=== PATIENT | male | born 1970 | race Hispanic/Latino ===

== ENCOUNTER 2017-09-15 18:07 | Emergency (ER) | payer SELFPAY ==
[2017-09-15] MEDS ORDERED: LIDOCAINE 2%-EPI 1:200,000 20 ML VIAL IJ ONE (18:33)
== END 2017-09-15 19:20 | disposition home or self-care (01) ==
LOC: EDH 18:07
DX: L02.214 Cutaneous abscess of groin (principal); E11.9 Type 2 diabetes mellitus without complications; I10 Essential (primary) hypertension
CPT/HCPCS: 10060; 99283; J3490

== ENCOUNTER 2017-11-26 11:07 | Emergency (ER) | payer SELFPAY ==
[2017-11-26] MEDS ORDERED: LABETALOL HCL 5 MG/ML 20ML VIAL IV ONE ×2 (11:35→14:50)
[2017-11-26 11:46] LABS: EOSINOPHILS % (AUTO) 3.6 % (0.0-8.0); HEMATOCRIT 44.9 % (42-54); LYMPHOCYTES % (AUTO) 16.8 % (21.0-51.0); MEAN CORPUSCULAR HEMOGLOBIN 29.4 pg (27.0-33.0); MEAN CORPUSCULAR HGB CONC 35.2 g/dL (32.0-36.0); MEAN CORPUSCULAR VOLUME 83.7 fL (79-99); MONOCYTES % (AUTO) 5.7 % (3.0-13.0); NEUTROPHILS % (AUTO) 72.9 % (40.0-77.0); PLATELET COUNT (AUTO) 301 K/uL (130-400); RED BLOOD CELL COUNT(AUTO) 5.37 MIL/uL (4.50-6.20); RED CELL DISTRIBUTION WIDTH 13.2 % (11.0-15.5); WHITE BLOOD COUNT (AUTO) 9.5 K/uL (4.8-10.8)
[2017-11-26] MEDS ORDERED: ACETAMINOPHEN 325 MG TAB ONE (11:46)
[2017-11-26 12:05] LABS: CREATININE 1.8 mg/dL (0.5-1.5); POTASSIUM 3.7 mmol/L (3.5-5.1)
[2017-11-26 12:21] LABS: CREATINE KINASE MB 4.6 ng/mL (0.5-3.6)
[2017-11-26 13:42] LABS: BILIRUBIN,URINE Negative (NEGATIVE); COLOR,URINE Yellow (YELLOW); GLUCOSE, URINE (UA) 500 mg/dL (NEGATIVE); KETONES,URINE Negative (NEGATIVE); LEUKOCYTE ESTERASE ,URINE Negative (NEGATIVE); NITRATE,URINE Negative (NEGATIVE); OCCULT BLOOD,URINE Small (NEGATIVE); PROTEIN,URINE 300 (NEGATIVE); UROBILINOGEN,URINE 0.2 mg/dL (0.2-1.0)
[2017-11-26 13:51] LABS: APPEARANCE,URINE CLEAR (CLEAR)
[2017-11-26 14:00] LABS: AMPHET/METH SCREEN,URINE NEGATIVE (NEGATIVE); BARBITURATE SCREEN, URINE NEGATIVE (NEGATIVE); BENZODIAZEPINES SCREEN,URINE NEGATIVE (NEGATIVE); CANNABINOID SCREEN,URINE NEGATIVE (NEGATIVE); COCAINE SCREEN,URINE NEGATIVE (NEGATIVE); OPIATE SCREEN,URINE NEGATIVE (NEGATIVE); PHENCYCLIDINE SCREEN,URINE NEGATIVE (NEGATIVE)
[2017-11-26 14:06] LABS: BACTERIA,URINE None Seen /HPF (None Seen); RBC,URINE 0-1 /HPF (0-1); SQUAMOUS EPITHELIAL CELL,UR 0-2 /HPF (0-2); WBC,URINE None Seen /HPF (0-1)
== END 2017-11-26 15:14 | disposition home or self-care (01) ==
LOC: EDH 11:07
DX: I10 Essential (primary) hypertension (principal); N28.9 Disorder of kidney and ureter, unspecified; R51 Headache; E11.9 Type 2 diabetes mellitus without complications; Z90.49 Acquired absence of other specified parts of digestive tract
CPT/HCPCS: 36415; 71045; 80048; 80305; 81001; 82550; 82553; 84484; 85025; 93005; 96374; 96376; 99285; J3490 ×2

== ENCOUNTER 2018-11-10 20:34 | Emergency (ER) | payer OTHER ==
[2018-11-10 21:08] LABS: BASOPHILS % (AUTO) 0.4 % (0.0-5.0); EOSINOPHILS % (AUTO) 4.4 % (0.0-8.0); HEMATOCRIT 43.6 % (42-54); LYMPHOCYTES % (AUTO) 5.3 % (21.0-51.0); MEAN CORPUSCULAR HEMOGLOBIN 29.7 pg (27.0-33.0); MEAN CORPUSCULAR HGB CONC 34.6 g/dL (32.0-36.0); MEAN CORPUSCULAR VOLUME 85.9 fL (79-99); MONOCYTES % (AUTO) 5.3 % (3.0-13.0); NEUTROPHILS % (AUTO) 84.6 % (40.0-77.0); PLATELET COUNT (AUTO) 246 K/uL (130-400); RED BLOOD CELL COUNT(AUTO) 5.08 MIL/uL (4.50-6.20); RED CELL DISTRIBUTION WIDTH 13.1 % (11.0-15.5); WHITE BLOOD COUNT (AUTO) 10.5 K/uL (4.8-10.8)
[2018-11-10] MEDS ORDERED: ONDANSETRON HCL 4 MG/2 ML VIAL ONE (21:16)
[2018-11-10 21:19] LABS: CREATININE 2.8 mg/dL (0.5-1.5); POTASSIUM 3.6 mmol/L (3.5-5.1)
[2018-11-10 21:23] LABS: ALBUMIN 3.2 g/dL (3.5-5.0); BILIRUBIN,TOTAL 0.4 mg/dL (0.2-1.0); TOTAL PROTEIN, SERUM 7.6 g/dL (6.0-8.3)
[2018-11-10 22:03] LABS: BAND NEUTROPHILS % (MANUAL) 8 % (0-2); EOSINOPHILS % (MANUAL) 3 % (1-6); LYMPHOCYTES % (MANUAL) 4 % (22-44); MAN.DIFF COMMENT-IMPRESSION MANUAL DIFFERENTIAL; MONOCYTES % (MANUAL) 5 % (2-9); PLATELET MORPHOLOGY COMMENT ADEQUATE; REACTIVE LYMPHOCYTES 4 % (0-0); SEGMENTED NEUTROPHILS % 76 % (40-70)
[2018-11-10] MEDS ORDERED: MORPHINE SULFATE 4 MG/1ML SYG ONE (22:09)
[2018-11-10 23:57] LABS: APPEARANCE,URINE CLEAR (CLEAR); BILIRUBIN,URINE NEGATIVE (NEGATIVE); COLOR,URINE YELLOW (YELLOW); GLUCOSE, URINE (UA) 250 mg/dL (NEGATIVE); KETONES,URINE NEGATIVE (NEGATIVE); LEUKOCYTE ESTERASE ,URINE NEGATIVE (NEGATIVE); NITRATE,URINE NEGATIVE (NEGATIVE); OCCULT BLOOD,URINE MODERATE (NEGATIVE); PH,URINE 5.5 (5.0-8.0); PROTEIN,URINE >=300 (NEGATIVE); UROBILINOGEN,URINE 0.2 mg/dL (0.2-1.0)
[2018-11-11 00:16] LABS: RBC,URINE 0-1 /HPF (0-1)
[2018-11-11 00:17] LABS: BACTERIA,URINE Few /HPF (None Seen)
== END 2018-11-11 00:31 | disposition home or self-care (01) ==
LOC: EDH 20:34
DX: K52.9 Noninfective gastroenteritis and colitis, unspecified (principal); E11.9 Type 2 diabetes mellitus without complications; I10 Essential (primary) hypertension; Z90.49 Acquired absence of other specified parts of digestive tract
CPT/HCPCS: 36415; 74176; 80053; 81001; 83690; 84484; 85025; 93005; 96361; 96374; 96375; 99284; J2270; J2405

== ENCOUNTER 2019-08-03 09:20 | Emergency (ER) | payer OTHER ==
[2019-08-03 09:45] LABS: BASOPHILS % (AUTO) 0.9 % (0.0-5.0); HEMATOCRIT 38.8 % (42-54); LYMPHOCYTES % (AUTO) 16.7 % (21.0-51.0); MEAN CORPUSCULAR HEMOGLOBIN 30.2 pg (27.0-33.0); MEAN CORPUSCULAR VOLUME 86.3 fL (79-99); MONOCYTES % (AUTO) 4.8 % (3.0-13.0); NEUTROPHILS % (AUTO) 73.6 % (40.0-77.0); PLATELET COUNT (AUTO) 220 K/uL (130-400); RED BLOOD CELL COUNT(AUTO) 4.49 MIL/uL (4.50-6.20); RED CELL DISTRIBUTION WIDTH 13.2 % (11.0-15.5); WHITE BLOOD COUNT (AUTO) 7.9 K/uL (4.8-10.8)
[2019-08-03] MEDS ORDERED: ASPIRIN 325 MG TABLET ONE (09:45)
[2019-08-03 09:49] LABS: CREATININE 2.8 mg/dL (0.5-1.5); POTASSIUM 3.1 mmol/L (3.5-5.1)
[2019-08-03 10:02] LABS: ALBUMIN 2.9 g/dL (3.5-5.0); BILIRUBIN,TOTAL 0.3 mg/dL (0.2-1.0); TOTAL PROTEIN, SERUM 6.9 g/dL (6.0-8.3)
[2019-08-03 10:12] LABS: B-TYPE NATRIURETIC PEPTIDE 32 pg/mL (0-100)
[2019-08-03 10:14] LABS: PARTIAL THROMBOPLASTIN TIME 25.3 SEC (26.3-35.5)
[2019-08-03 10:25] LABS: INR 0.89 (0.85-1.15); PROTHROMBIN TIME 9.4 SEC (9.6-11.6)
[2019-08-03] MEDS ORDERED: ACETAMINOPHEN EXTRA STRENGTH 500 MG TABLET ONE (11:39)
== END 2019-08-03 12:52 | disposition home or self-care (01) ==
LOC: EDH 09:20
DX: R07.89 Other chest pain (principal); E11.9 Type 2 diabetes mellitus without complications; I10 Essential (primary) hypertension; Z90.49 Acquired absence of other specified parts of digestive tract
CPT/HCPCS: 36415; 71045; 80053; 82550; 83880; 84484; 85025; 85610; 85730; 93005

== ENCOUNTER 2019-09-02 07:29 | Emergency (ER) | payer SELFPAY ==
[2019-09-02 08:04] LABS: BASOPHILS % (AUTO) 0.6 % (0.0-5.0); EOSINOPHILS % (AUTO) 4.1 % (0.0-8.0); HEMATOCRIT 40.9 % (42-54); LYMPHOCYTES % (AUTO) 16.3 % (21.0-51.0); MEAN CORPUSCULAR HEMOGLOBIN 29.2 pg (27.0-33.0); MEAN CORPUSCULAR VOLUME 85.9 fL (79-99); MONOCYTES % (AUTO) 6.2 % (3.0-13.0); NEUTROPHILS % (AUTO) 72.5 % (40.0-77.0); PLATELET COUNT (AUTO) 244 K/uL (130-400); RED BLOOD CELL COUNT(AUTO) 4.76 MIL/uL (4.50-6.20); RED CELL DISTRIBUTION WIDTH 12.7 % (11.0-15.5); WHITE BLOOD COUNT (AUTO) 6.3 K/uL (4.8-10.8)
[2019-09-02] MEDS ORDERED: HYDROCODONE/ACETAMINOPHEN 10/325 MG TAB ONE (08:06)
[2019-09-02] MEDS ORDERED: METOCLOPRAMIDE 10 MG/2 ML VIAL ONE ×2 (08:06→09:06)
[2019-09-02] MEDS ORDERED: SODIUM CHLORIDE 0.9% 1000ML 1,000 ML IV ONE (08:07)
[2019-09-02 08:24] LABS: CREATININE 3.1 mg/dL (0.5-1.5); POTASSIUM 3.7 mmol/L (3.5-5.1)
[2019-09-02 08:29] LABS: ALBUMIN 3.3 g/dL (3.5-5.0); BILIRUBIN,TOTAL 0.4 mg/dL (0.2-1.0)
== END 2019-09-02 10:24 | disposition home or self-care (01) ==
LOC: EDH 07:29
DX: R51 Headache (principal); E11.9 Type 2 diabetes mellitus without complications; I10 Essential (primary) hypertension; Z87.891 Personal history of nicotine dependence
CPT/HCPCS: 36415; 70450; 80053; 85025; 96374; 99285; J2765 ×2; J7030

== ENCOUNTER 2019-09-03 16:59 | Emergency (ER) | payer SELFPAY ==
[2019-09-03] MEDS ORDERED: LABETALOL 20 MG/4 ML DISP.SYRIN IV ONE ×2 (18:09→19:40)
[2019-09-03] MEDS ORDERED: PROCHLORPERAZINE EDISYLATE 10 MG/2 ML VIAL ONE (18:09)
[2019-09-03] MEDS ORDERED: ACETAMINOPHEN EXTRA STRENGTH 500 MG TABLET ONE (18:09)
[2019-09-03] MEDS ORDERED: SODIUM CHLORIDE 0.9% 1000ML 1,000 ML IV ONE (18:10)
[2019-09-03] MEDS ORDERED: CLONIDINE HCL 0.1 MG TABLET ONE (18:32)
[2019-09-03] MEDS ORDERED: MORPHINE SULFATE 4 MG/1ML SYG ONE (19:41)
[2019-09-03] MEDS ORDERED: BENZONATATE 100 MG CAPSULE PO ONE (22:11)
== END 2019-09-03 21:42 | disposition home or self-care (01) ==
LOC: EDH 16:59
DX: I16.9 Hypertensive crisis, unspecified (principal); I10 Essential (primary) hypertension; R51 Headache; E11.9 Type 2 diabetes mellitus without complications; Z79.899 Other long term (current) drug therapy; Z90.49 Acquired absence of other specified parts of digestive tract
CPT/HCPCS: 96374; 96375; 96376; 99284; J0780; J2270; J7030

== ENCOUNTER 2023-04-18 20:09 | Inpatient (IN) | payer MEDICARE ==
[~2023-04-18] VITALS: Ht 182.9 cm; Wt 130.6 kg
[2023-04-18] MEDS ORDERED: AZITHROMYCIN 500MG+NS 250ML IVPB SCH (21:30)
[2023-04-18] MEDS ORDERED: MORPHINE 2 MG SYG IVP ONE (21:30)
[2023-04-18] MEDS ORDERED: ALBUTEROL 0.083% 2.5 MG/3 ML INH IH ONE (21:30)
[2023-04-18] MEDS ORDERED: ASPIRIN 325MG TAB PO ONE (21:30)
[2023-04-18] MEDS ORDERED: NITROGLYCERIN 30 GM TUBE TD ONE (21:30)
[2023-04-18] MEDS ORDERED: CEFTRIAXONE 2GM VIAL IVPB ONE (21:30)
[2023-04-18] MEDS ORDERED: METOPROLOL TARTRATE 1 MG/ML 5ML VIAL IV ONE ×2 (21:37→22:00)
[2023-04-18 21:40] VITALS: PULSE 97; RESP 12
[2023-04-18 22:00] LABS: BASOPHILS # (AUTO) 0.05 K/uL (0.00-0.20); BASOPHILS % (AUTO) 0.4 % (0.0-5.0); EOSINOPHILS # (AUTO) 0.08 K/uL (0.00-0.70); EOSINOPHILS % (AUTO) 0.7 % (0.0-8.0); HEMATOCRIT 33.8 % (42-54); IMMATURE GRANULOCYTE ABSOLUTE 0.11 K/uL (0-1); LYMPHOCYTES # (AUTO) 0.6 K/uL (1.0-4.8); LYMPHOCYTES % (AUTO) 4.9 % (21.0-51.0); MEAN CORPUSCULAR HEMOGLOBIN 31.1 pg (27.0-33.0); MEAN CORPUSCULAR HGB CONC 32.5 g/dL (32.0-36.0); MEAN CORPUSCULAR VOLUME 95.5 fL (79-99); MONOCYTES # (AUTO) 1.5 K/uL (0.1-1.0); MONOCYTES % (AUTO) 12.6 % (3.0-13.0); NEUTROPHILS # (AUTO) 9.8 K/uL (1.8-7.7); NEUTROPHILS % (AUTO) 80.5 % (40.0-77.0); PLATELET COUNT (AUTO) 397 K/uL (130-400); RED BLOOD CELL COUNT(AUTO) 3.54 MIL/uL (4.50-6.20); WHITE BLOOD COUNT (AUTO) 12.2 K/uL (4.8-10.8)
[2023-04-18] MEDS ORDERED: GUAIFENESIN 600 MG TABLET.ER PO ONE (22:00)
[2023-04-18] MEDS ORDERED: ENOXAPARIN SODIUM 80 MG/0.8 ML SQ ONE (22:00)
[2023-04-18] MEDS ORDERED: HYDROCODONE/ACETAMINOPHEN 5/325 MG TAB ONE (22:17)
[2023-04-18 22:22] LABS: CREATININE 7.2 mg/dL (0.5-1.5); POTASSIUM 3.9 mmol/L (3.5-5.1)
[2023-04-18 22:24] LABS: INR 0.93 (0.85-1.15); PROTHROMBIN TIME 10.6 SEC (9.6-11.6)
[2023-04-18 22:26] LABS: PARTIAL THROMBOPLASTIN TIME 32.9 SEC (26.3-35.5)
[2023-04-18 22:28] LABS: ALBUMIN 2.7 g/dL (3.5-5.0); BILIRUBIN,TOTAL 0.4 mg/dL (0.2-1.0); TOTAL PROTEIN, SERUM 8.1 g/dL (6.0-8.3)
[2023-04-18] MEDS ORDERED: 0.9% NACL 250ML 250 ML IV SCH (22:30)
[2023-04-18] MEDS ORDERED: 0.9%NACL 1000ML 1,000 ML IV SCH (22:30)
[2023-04-18] MEDS ORDERED: NITROGLYCERIN 1GM OINT 1 INCH/1GM TD ONE (23:00)
[2023-04-18] MEDS ORDERED: NITROGLYCERIN 0.4 MG SL TAB SL PRN (23:00)
[2023-04-18] MEDS ORDERED: METOCLOPRAMIDE 10 MG/2 ML VIAL IVP ONE (23:00)
[2023-04-18] MEDS ORDERED: HYDROCODONE/ACETAMINOPHEN 5/325 MG TAB PO ONE (23:00)
[2023-04-18 23:53] LABS: ABG BASE EXCESS -0.2 mmol/L (-2.0-3.0); ABG HCO3 25.1 mmol/L (21.0-28.0); ABG OXYGEN SATURATION 64.5 % (95.0-99.0); ABG PCO2 43 mmHg (35-48); ABG PH 7.382 (7.35-7.450); DEVICE COMMENT ROOM AIR; PO2, ARTERIAL BG < 45.0 mmHg (83.0-108.0); VENT MODE, BG ROOM AIR (ROOM AIR)
[2023-04-19] VITALS (35 sets, daily range): BP systolic 121–199; BP diastolic 58–102; PULSE 80–100; RESP 16–25; TEMP 98.6–98.7; O2SAT 93–99
[2023-04-19] MEDS ORDERED: ACETAMINOPHEN 325 MG TAB PO PRN ×2
[2023-04-19] MEDS ORDERED: MAGNESIUM 2GM PREMIX 50ML 50 ML IV PRN
[2023-04-19] MEDS ORDERED: ONDANSETRON 4MG INJ IV PRN
[2023-04-19] MEDS ORDERED: SOLU-MEDROL 125MG VIAL IVP ONE
[2023-04-19 00:43] LABS: ABG BASE EXCESS -0.1 mmol/L (-2.0-3.0); ABG OXYGEN SATURATION 66.7 % (95.0-99.0); ABG PCO2 43 mmHg (35-48); ABG PH 7.387 (7.35-7.450); DEVICE COMMENT ROOM AIR; PO2, ARTERIAL BG < 45.0 mmHg (83.0-108.0); VENT MODE, BG ROOM AIR (ROOM AIR)
[2023-04-19] MEDS: ALBUTEROL 0.083% 2.5 MG/3 ML INH IH SCH ×2 (00:49→06:29)
[2023-04-19] MEDS: ZOSYN 3.375GM+NS 50ML 50 ML IVPB SCH ×3 (01:32→23:57)
[2023-04-19 01:54] LABS: RAPID GROUP A STREP negative (NEGATIVE)
[2023-04-19 01:58] LABS: SARS-CoV-2, RNA, NAAT NEGATIVE SARS CoV-2 (NEGATIVE)
[2023-04-19 02:04] LABS: INFLUENZA TYPE A Negative For Type A (NEGATIVE); INFLUENZA TYPE B Negative For Type B (NEGATIVE)
[2023-04-19] MEDS: HYDROMORPHONE 1 MG INJ IV PRN ×3 (03:15→20:12)
[2023-04-19 07:53] LABS: HEMOGLOBIN A1C 8.2 % (4.0-6.0)
[2023-04-19] MEDS: NITROGLYCERIN 1GM OINT 1 INCH/1GM TD SCH ×2 (08:00)
[2023-04-19 08:08] LABS: BASOPHILS # (AUTO) 0.03 K/uL (0.00-0.20); BASOPHILS % (AUTO) 0.2 % (0.0-5.0); EOSINOPHILS # (AUTO) 0.08 K/uL (0.00-0.70); EOSINOPHILS % (AUTO) 0.6 % (0.0-8.0); HEMATOCRIT 32.9 % (42-54); IMMATURE GRANULOCYTE ABSOLUTE 0.09 K/uL (0-1); LYMPHOCYTES # (AUTO) 0.7 K/uL (1.0-4.8); MEAN CORPUSCULAR HEMOGLOBIN 30.9 pg (27.0-33.0); MEAN CORPUSCULAR HGB CONC 32.2 g/dL (32.0-36.0); MEAN CORPUSCULAR VOLUME 95.9 fL (79-99); MONOCYTES # (AUTO) 1.7 K/uL (0.1-1.0); MONOCYTES % (AUTO) 12.2 % (3.0-13.0); NEUTROPHILS # (AUTO) 11.2 K/uL (1.8-7.7); NEUTROPHILS % (AUTO) 81.3 % (40.0-77.0); PLATELET COUNT (AUTO) 397 K/uL (130-400); RED BLOOD CELL COUNT(AUTO) 3.43 MIL/uL (4.50-6.20); RED CELL DISTRIBUTION WIDTH 15.3 % (11.0-15.5); WHITE BLOOD COUNT (AUTO) 13.8 K/uL (4.8-10.8)
[2023-04-19] MEDS: SOLU-MEDROL 40MG VIAL IVP SCH ×2 (08:12)
[2023-04-19] MEDS: ASPIRIN 81MG CHEW TAB PO SCH (08:13)
[2023-04-19] MEDS: PANTOPRAZOLE 40 MG TAB DR PO SCH (08:13)
[2023-04-19] MEDS: INSULIN HUMULIN R 100 UNIT/ML 3ML SQ SCH ×4 (08:23→20:13)
[2023-04-19] MEDS ORDERED: ASPI-1443 PO (08:47)
[2023-04-19] MEDS ORDERED: CINA30TA5 PO (08:47)
[2023-04-19] MEDS ORDERED: AMLO-258 PO (08:47)
[2023-04-19] MEDS ORDERED: HYDR100T27 PO (08:47)
[2023-04-19] MEDS ORDERED: ATOR40TA71 PO (08:47)
[2023-04-19] MEDS ORDERED: PRAS10TA9 PO (08:47)
[2023-04-19 09:01] LABS: CREATININE 7.8 mg/dL (0.5-1.5); MAGNESIUM 2.8 mg/dL (1.80-2.40)
[2023-04-19] MEDS: LIDOCAINE 4% ADH..PATCH TP SCH (10:12)
[2023-04-19] MEDS ORDERED: HEPARIN 5,000 UNIT VIAL SQ PRN (11:00)
[2023-04-19] MEDS: HEPARIN 25,000 UNITS/250ML D5W 250 ML IV SCH ×3 (11:31→23:57)
[2023-04-19] MEDS: HYDROCODONE/ACETAMINOPHEN 5/325 MG TAB PO PRN (11:38)
[2023-04-19] MEDS: SEVELAMER HCL 800 MG TABLET PO SCH ×2 (12:00→17:19)
[2023-04-19] MEDS: PRASUGREL HCL 10 MG TABLET PO SCH (17:18)
[2023-04-19] MEDS ORDERED: AMLODIPINE 5 MG TAB PO ONE (21:30)
[2023-04-19] MEDS ORDERED: HYDRALAZINE 25MG TABLET PO SCH (21:30)
[2023-04-19] MEDS ORDERED: BENZOCAINE/MENTH/CETYLPYRD CL 1 EACH LOZENGE MM PRN (22:00)
[2023-04-20] VITALS: O2SAT 94
[2023-04-20 00:04] VITALS: BP 149/86; PULSE 95; RESP 20
[2023-04-20] MEDS: HYDROMORPHONE 1 MG INJ IV PRN (00:09)
[2023-04-20 01:16] VITALS: BP 150/71; PULSE 101; RESP 91
[2023-04-20 02:00] VITALS: BP 111/62; PULSE 99; RESP 10
[2023-04-20 02:36] LABS: HEPATITIS B SURFACE ANTIGEN Non-Reactive (Nonreactive)
[2023-04-20] MEDS ORDERED: NON-FORMULARY MEDICATION 1 EACH (Hydralazine HCl 100 MG) PO SCH (09:00)
[2023-04-20] MEDS ORDERED: PRASUGREL HCL 10 MG TABLET PO SCH (09:00)
[2023-04-20] MEDS ORDERED: LACTULOSE 20 GM/30 ML UDCUP ONE ×2 (10:42→19:55)
[2023-04-20] MEDS ORDERED: IOHEXOL 350 MG/ML 100ML INFUS..BTL IV ONE (11:13)
[2023-04-20] MEDS: PRASUGREL HCL 10 MG TABLET PO SCH (19:00)
[2023-04-20] MEDS: SEVELAMER HCL 800 MG TABLET PO SCH (19:00)
[2023-04-20] MEDS: LIDOCAINE 4% ADH..PATCH TP SCH (19:00)
[2023-04-20] MEDS: ASPIRIN 81MG CHEW TAB PO SCH (19:00)
[2023-04-20] MEDS: INSULIN HUMULIN R 100 UNIT/ML 3ML SQ SCH ×2 (19:00→21:00)
[2023-04-20] MEDS: HEPARIN 25,000 UNITS/250ML D5W 250 ML IV SCH ×2 (19:00→23:00)
[2023-04-20] MEDS: PANTOPRAZOLE 40 MG TAB DR PO SCH (19:00)
[2023-04-20] MEDS: ZOSYN 3.375GM+NS 50ML 50 ML IVPB SCH (19:00)
[2023-04-20] MEDS ORDERED: HYDRALAZINE 25MG TABLET ONE (21:03)
[2023-04-21] VITALS (21 sets, daily range): BP systolic 113–169; BP diastolic 49–91; PULSE 82–95; RESP 16–21; TEMP 98.1–98.2; O2SAT 95–98
[2023-04-21] MEDS: HYDROCODONE/ACETAMINOPHEN 5/325 MG TAB PO PRN (01:08)
[2023-04-21] MEDS: HYDROMORPHONE 1 MG INJ IV PRN ×3 (01:13→20:25)
[2023-04-21 04:42] LABS: HEMATOCRIT 31.7 % (42-54); MEAN CORPUSCULAR HEMOGLOBIN 30.4 pg (27.0-33.0); MEAN CORPUSCULAR HGB CONC 32.2 g/dL (32.0-36.0); MEAN CORPUSCULAR VOLUME 94.6 fL (79-99); RED BLOOD CELL COUNT(AUTO) 3.35 MIL/uL (4.50-6.20); RED CELL DISTRIBUTION WIDTH 14.9 % (11.0-15.5); WHITE BLOOD COUNT (AUTO) 15.2 K/uL (4.8-10.8)
[2023-04-21 05:02] LABS: ALBUMIN 2.4 g/dL (3.5-5.0); BILIRUBIN,TOTAL 0.3 mg/dL (0.2-1.0); MAGNESIUM 2.7 mg/dL (1.80-2.40); PHOSPHORUS 7.1 mg/dL (2.5-4.9); POTASSIUM 4.3 mmol/L (3.5-5.1); TOTAL PROTEIN, SERUM 7.6 g/dL (6.0-8.3)
[2023-04-21 05:06] LABS: CREATININE 9.8 mg/dL (0.5-1.5)
[2023-04-21] MEDS: LACTULOSE 20 GM/30 ML UDCUP PO PRN (06:10)
[2023-04-21] MEDS: INSULIN HUMULIN R 100 UNIT/ML 3ML SQ SCH ×4 (06:12→20:25)
[2023-04-21] MEDS: SEVELAMER HCL 800 MG TABLET PO SCH ×3 (12:00→18:25)
[2023-04-21] MEDS: HYDRALAZINE 25MG TABLET PO SCH ×4 (13:00→20:12)
[2023-04-21] MEDS: PANTOPRAZOLE 40 MG TAB DR PO SCH (13:50)
[2023-04-21] MEDS: ASPIRIN 81MG CHEW TAB PO SCH (13:50)
[2023-04-21] MEDS: AMLODIPINE 5 MG TAB PO SCH (13:50)
[2023-04-21] MEDS: LIDOCAINE 4% ADH..PATCH TP SCH (13:51)
[2023-04-21] MEDS: PRASUGREL HCL 10 MG TABLET PO SCH (13:51)
[2023-04-21] MEDS: ZOSYN 3.375GM+NS 50ML 50 ML IVPB SCH ×3 (14:13→23:51)
[2023-04-22 00:24] VITALS: BP 151/78; PULSE 83; RESP 19
[2023-04-22] MEDS: HYDROMORPHONE 1 MG INJ IV PRN ×3 (00:24→09:40)
[2023-04-22] MEDS: LACTULOSE 20 GM/30 ML UDCUP PO PRN (03:31)
[2023-04-22 03:48] VITALS: BP 149/71; PULSE 86; RESP 18
[2023-04-22] MEDS: INSULIN HUMULIN R 100 UNIT/ML 3ML SQ SCH ×2 (06:03→11:45)
[2023-04-22 08:00] VITALS: O2SAT 97
[2023-04-22 08:04] VITALS: BP 116/62; PULSE 90; RESP 18
[2023-04-22] MEDS: SEVELAMER HCL 800 MG TABLET PO SCH ×2 (08:28→13:01)
[2023-04-22] MEDS: PRASUGREL HCL 10 MG TABLET PO SCH (08:29)
[2023-04-22] MEDS: AMLODIPINE 5 MG TAB PO SCH (08:29)
[2023-04-22] MEDS: ASPIRIN 81MG CHEW TAB PO SCH (08:29)
[2023-04-22] MEDS: PANTOPRAZOLE 40 MG TAB DR PO SCH (08:29)
[2023-04-22] MEDS: HYDRALAZINE 25MG TABLET PO SCH ×2 (09:00→14:40)
[2023-04-22] MEDS: LIDOCAINE 4% ADH..PATCH TP SCH (09:57)
[2023-04-22 10:03] LABS: BASOPHILS # (AUTO) 0.05 K/uL (0.00-0.20); BASOPHILS % (AUTO) 0.4 % (0.0-5.0); EOSINOPHILS # (AUTO) 0.19 K/uL (0.00-0.70); EOSINOPHILS % (AUTO) 1.6 % (0.0-8.0); HEMATOCRIT 31.5 % (42-54); IMMATURE GRANULOCYTE ABSOLUTE 0.12 K/uL (0-1); LYMPHOCYTES # (AUTO) 0.7 K/uL (1.0-4.8); LYMPHOCYTES % (AUTO) 5.9 % (21.0-51.0); MEAN CORPUSCULAR VOLUME 93.8 fL (79-99); MONOCYTES # (AUTO) 1.1 K/uL (0.1-1.0); MONOCYTES % (AUTO) 8.8 % (3.0-13.0); NEUTROPHILS # (AUTO) 10.1 K/uL (1.8-7.7); NEUTROPHILS % (AUTO) 82.3 % (40.0-77.0); PLATELET COUNT (AUTO) 430 K/uL (130-400); RED BLOOD CELL COUNT(AUTO) 3.36 MIL/uL (4.50-6.20); WHITE BLOOD COUNT (AUTO) 12.2 K/uL (4.8-10.8)
[2023-04-22 10:07] LABS: ALBUMIN 2.4 g/dL (3.5-5.0); BILIRUBIN,TOTAL 0.3 mg/dL (0.2-1.0); POTASSIUM 4.2 mmol/L (3.5-5.1); TOTAL PROTEIN, SERUM 7.4 g/dL (6.0-8.3)
[2023-04-22 10:19] LABS: CREATININE 9.1 mg/dL (0.5-1.5)
[2023-04-22 10:28] LABS: BASOPHILS # (AUTO) 0.02 K/uL (0.00-0.20); BASOPHILS % (AUTO) 0.1 % (0.0-5.0); HEMATOCRIT 32.8 % (42-54); IMMATURE GRANULOCYTE ABSOLUTE 0.12 K/uL (0-1); LYMPHOCYTES # (AUTO) 0.6 K/uL (1.0-4.8); LYMPHOCYTES % (AUTO) 2.9 % (21.0-51.0); MEAN CORPUSCULAR HEMOGLOBIN 30.5 pg (27.0-33.0); MEAN CORPUSCULAR VOLUME 95.3 fL (79-99); MONOCYTES # (AUTO) 1.3 K/uL (0.1-1.0); MONOCYTES % (AUTO) 6.8 % (3.0-13.0); NEUTROPHILS # (AUTO) 17.6 K/uL (1.8-7.7); NEUTROPHILS % (AUTO) 89.6 % (40.0-77.0); PLATELET COUNT (AUTO) 392 K/uL (130-400); RED BLOOD CELL COUNT(AUTO) 3.44 MIL/uL (4.50-6.20); WHITE BLOOD COUNT (AUTO) 19.6 K/uL (4.8-10.8)
[2023-04-22 12:13] VITALS: BP 164/88; PULSE 84; RESP 19
[2023-04-22] MEDS: ZOSYN 3.375GM+NS 50ML 50 ML IVPB SCH (12:58)
[2023-04-22] MEDS ORDERED: PRAS10TA6 PO (14:44)
[2023-04-22] MEDS ORDERED: Sevelamer Hcl PO (14:44)
[2023-04-22] MEDS ORDERED: INSULIN LISPRO 100 UNIT/ML 3ML SQ SCH (17:00)
[2023-04-22] MEDS ORDERED: INSULIN GLARGINE 100 UNITS/ML 10 ML VIAL SQ SCH (21:00)
[2023-04-22] MEDS ORDERED: LEVO-70 PO (23:02)
[2023-04-22] MEDS ORDERED: IBUP-1493 PO (23:03)
== END 2023-04-22 16:40 | disposition home or self-care (01) | DRG 871 ==
LOC: EDH 20:09 → EDHIP 23:49 → 2CH 04-19 06:05 → 3BH 04-21 00:49
PROVIDERS: ADMIT Internal Medicine; ATTEND Internal Medicine
PROC: 5A1D70Z Performance of Urinary Filtration, Intermittent, Less than 6 Hours Per Day (ICD-10-PCS; principal; 2023-04-19)
PROC: 5A1D70Z Performance of Urinary Filtration, Intermittent, Less than 6 Hours Per Day (ICD-10-PCS; 2023-04-21)
DX: A41.9 Sepsis, unspecified organism (principal); J15.6 Pneumonia due to other Gram-negative bacteria; J96.01 Acute respiratory failure with hypoxia; N18.6 End stage renal disease; I25.110 Atherosclerotic heart disease of native coronary artery with unstable angina pectoris; D68.59 Other primary thrombophilia; E66.2 Morbid (severe) obesity with alveolar hypoventilation; I13.2 Hypertensive heart and chronic kidney disease with heart failure and with stage 5 chronic kidney disease, or end stage renal disease; Z20.822 Contact with and (suspected) exposure to COVID-19; R65.20 Severe sepsis without septic shock; E11.65 Type 2 diabetes mellitus with hyperglycemia; E11.22 Type 2 diabetes mellitus with diabetic chronic kidney disease; E78.00 Pure hypercholesterolemia, unspecified; I48.91 Unspecified atrial fibrillation; I49.5 Sick sinus syndrome; I50.9 Heart failure, unspecified; Z68.39 Body mass index [BMI] 39.0-39.9, adult; Z79.02 Long term (current) use of antithrombotics/antiplatelets; Z91.199 Patient's noncompliance with other medical treatment and regimen due to unspecified reason; Z79.82 Long term (current) use of aspirin; Z86.74 Personal history of sudden cardiac arrest; Z95.0 Presence of cardiac pacemaker; Z95.5 Presence of coronary angioplasty implant and graft; Z99.2 Dependence on renal dialysis
CPT/HCPCS: 36415; 36600; 71045; 71275; 80048; 80053; 82550; 82803; 82948; 83036; 83605; 83735; 83880; 84100; 84145; 84484; 85025; 85027; 85378; 85610; 85730; 86704; 86706; 87040; 87340; 87635; 87804; 87880; 90935; 93005; 93308; 93970; 94640; 94664; G0378; J0456; J0696; J1170; J1644; J1815; J2270; J2405; J2543; J2765; J2920; J2930; J3490; Q9967

== ENCOUNTER 2023-04-22 21:50 | Emergency (ER) | payer MEDICARE ==
[~2023-04-22] VITALS: Ht 182.9 cm; Wt 127.0 kg
[~2023-04-22 21:50] MED LIST: AMLO-258 PO; ASPI-1443 PO; ATOR40TA71 PO; CINA30TA5 PO; HYDR100T27 PO; PRAS10TA6 PO; PRAS10TA9 PO; Sevelamer Hcl PO
[2023-04-22] MEDS ORDERED: LEVOFLOXACIN 500 MG TABLET PO SCH (23:00)
[2023-04-22] MEDS ORDERED: LEVO-70 PO (23:02)
[2023-04-22] MEDS ORDERED: IBUP-1493 PO (23:03)
[2023-04-22 23:29] VITALS: BP 146/88; PULSE 96; RESP 18; O2SAT 99
== END 2023-04-22 23:31 | disposition home or self-care (01) ==
LOC: EDH 21:50
DX: J18.9 Pneumonia, unspecified organism (principal); I13.0 Hypertensive heart and chronic kidney disease with heart failure and stage 1 through stage 4 chronic kidney disease, or unspecified chronic kidney disease; E11.22 Type 2 diabetes mellitus with diabetic chronic kidney disease; N18.9 Chronic kidney disease, unspecified; I50.9 Heart failure, unspecified; E78.00 Pure hypercholesterolemia, unspecified; Z59.00 Homelessness unspecified; Z79.02 Long term (current) use of antithrombotics/antiplatelets; Z79.82 Long term (current) use of aspirin; Z79.899 Other long term (current) drug therapy; Z90.49 Acquired absence of other specified parts of digestive tract; Z95.810 Presence of automatic (implantable) cardiac defibrillator; Z99.2 Dependence on renal dialysis

== ENCOUNTER 2023-05-02 15:16 | Emergency (ER) | payer MEDICARE ==
[~2023-05-02] VITALS: Ht 182.9 cm; Wt 127.0 kg
[~2023-05-02 15:16] MED LIST changes: +IBUP-1493 PO; +LEVO-70 PO
[2023-05-02] MEDS ORDERED: MORPHINE 4 MG SYG IVP ONE (15:30)
[2023-05-02] MEDS ORDERED: ONDANSETRON 4MG INJ IVP ONE (15:30)
[2023-05-02 16:05] LABS: HEMATOCRIT 34.1 % (42-54); MEAN CORPUSCULAR HEMOGLOBIN 30.7 pg (27.0-33.0); MEAN CORPUSCULAR HGB CONC 32.3 g/dL (32.0-36.0); MEAN CORPUSCULAR VOLUME 95.3 fL (79-99); RED BLOOD CELL COUNT(AUTO) 3.58 MIL/uL (4.50-6.20); RED CELL DISTRIBUTION WIDTH 15.5 % (11.0-15.5); WHITE BLOOD COUNT (AUTO) 11.2 K/uL (4.8-10.8)
[2023-05-02 16:18] LABS: CREATININE 6.5 mg/dL (0.5-1.5); POTASSIUM 3.5 mmol/L (3.5-5.1)
[2023-05-02 16:23] LABS: ALBUMIN 2.8 g/dL (3.5-5.0); BILIRUBIN,TOTAL 0.3 mg/dL (0.2-1.0); TOTAL PROTEIN, SERUM 7.6 g/dL (6.0-8.3)
[2023-05-02] MEDS ORDERED: KETOROLAC 30MG VIAL (30MG/ML) IVP ONE (20:00)
[2023-05-02] MEDS ORDERED: HYDROMORPHONE 0.5 MG SYG (0.5MG/0.5ML) IVP ONE (21:00)
[2023-05-02 22:15] VITALS: BP 164/59; PULSE 81; RESP 16; O2SAT 98
== END 2023-05-02 22:30 | disposition home or self-care (01) ==
LOC: EDH 15:16
DX: R10.9 Unspecified abdominal pain (principal); I13.0 Hypertensive heart and chronic kidney disease with heart failure and stage 1 through stage 4 chronic kidney disease, or unspecified chronic kidney disease; E11.22 Type 2 diabetes mellitus with diabetic chronic kidney disease; N18.9 Chronic kidney disease, unspecified; I25.2 Old myocardial infarction; E78.00 Pure hypercholesterolemia, unspecified; Z79.02 Long term (current) use of antithrombotics/antiplatelets; Z79.1 Long term (current) use of non-steroidal anti-inflammatories (NSAID); Z79.82 Long term (current) use of aspirin; Z79.899 Other long term (current) drug therapy; Z90.49 Acquired absence of other specified parts of digestive tract; Z95.810 Presence of automatic (implantable) cardiac defibrillator; Z99.2 Dependence on renal dialysis
CPT/HCPCS: 99285; 74176; 96374; 96375; 71045; 80053; 85027; 87040 ×2; 83605; 36415; J2405; J2270; J1885; J1170

== ENCOUNTER 2023-05-04 10:04 | Emergency (ER) | payer MEDICARE ==
[~2023-05-04] VITALS: Ht 182.9 cm; Wt 127.0 kg
[2023-05-04 10:05] VITALS: BP 187/90; PULSE 98; RESP 20
[2023-05-04 11:54] LABS: BASOPHILS # (AUTO) 0.06 K/uL (0.00-0.20); BASOPHILS % (AUTO) 0.5 % (0.0-5.0); EOSINOPHILS # (AUTO) 0.33 K/uL (0.00-0.70); EOSINOPHILS % (AUTO) 2.8 % (0.0-8.0); HEMATOCRIT 33.3 % (42-54); IMMATURE GRANULOCYTE ABSOLUTE 0.06 K/uL (0-1); LYMPHOCYTES # (AUTO) 0.7 K/uL (1.0-4.8); LYMPHOCYTES % (AUTO) 6.3 % (21.0-51.0); MEAN CORPUSCULAR HEMOGLOBIN 30.8 pg (27.0-33.0); MEAN CORPUSCULAR HGB CONC 32.1 g/dL (32.0-36.0); MONOCYTES # (AUTO) 0.8 K/uL (0.1-1.0); MONOCYTES % (AUTO) 6.3 % (3.0-13.0); NEUTROPHILS # (AUTO) 9.9 K/uL (1.8-7.7); NEUTROPHILS % (AUTO) 83.6 % (40.0-77.0); PLATELET COUNT (AUTO) 288 K/uL (130-400); RED BLOOD CELL COUNT(AUTO) 3.47 MIL/uL (4.50-6.20); RED CELL DISTRIBUTION WIDTH 15.7 % (11.0-15.5); WHITE BLOOD COUNT (AUTO) 11.8 K/uL (4.8-10.8)
[2023-05-04 12:07] LABS: ALBUMIN 2.8 g/dL (3.5-5.0); BILIRUBIN,TOTAL 0.3 mg/dL (0.2-1.0); POTASSIUM 4.1 mmol/L (3.5-5.1); TOTAL PROTEIN, SERUM 7.5 g/dL (6.0-8.3)
[2023-05-04 12:09] LABS: CREATININE 10.7 mg/dL (0.5-1.5)
[2023-05-04] MEDS ORDERED: HYDROCODONE/ACETAMINOPHEN 5/325 MG TAB PO ONE (13:00)
[2023-05-04] MEDS ORDERED: HYDROCODONE/ACETAMINOPHEN 5/325 MG TAB ONE (13:07)
[2023-05-04 14:20] LABS: APPEARANCE,URINE CLEAR (CLEAR); BILIRUBIN,URINE NEGATIVE (NEGATIVE); COLOR,URINE COLORLESS (YELLOW); GLUCOSE, URINE (UA) 500 mg/dL (NEGATIVE); KETONES,URINE NEGATIVE (NEGATIVE); LEUKOCYTE ESTERASE ,URINE NEGATIVE Leu/uL (NEGATIVE); NITRATE,URINE NEGATIVE (NEGATIVE); OCCULT BLOOD,URINE SMALL (NEGATIVE); PH,URINE 7.5 (5.0-8.0); PROTEIN,URINE 300 mg/dL (NEGATIVE); UROBILINOGEN,URINE 0.2 mg/dL (0.2-1.0)
[2023-05-04 14:21] LABS: ADD UA MICROSCOPIC YES
[2023-05-04 14:26] LABS: RBC,URINE 0-1 /HPF (0-1); SQUAMOUS EPITHELIAL CELL,UR RARE /HPF (0-2)
[2023-05-04] MEDS ORDERED: CYCLOBENZAPRINE HCL 10 MG TABLET PO ONE (14:30)
[2023-05-04] MEDS ORDERED: IBUPROFEN 600 MG TABLET PO ONE (14:30)
[2023-05-04] MEDS ORDERED: CYCL5TAB PO (14:49)
== END 2023-05-04 14:58 | disposition home or self-care (01) ==
LOC: EDH 10:04
DX: M54.50 Low back pain, unspecified (principal); R10.9 Unspecified abdominal pain; E11.22 Type 2 diabetes mellitus with diabetic chronic kidney disease; I13.2 Hypertensive heart and chronic kidney disease with heart failure and with stage 5 chronic kidney disease, or end stage renal disease; I50.9 Heart failure, unspecified; N18.6 End stage renal disease; E78.00 Pure hypercholesterolemia, unspecified; Z79.82 Long term (current) use of aspirin; Z79.899 Other long term (current) drug therapy; Z90.49 Acquired absence of other specified parts of digestive tract; Z95.810 Presence of automatic (implantable) cardiac defibrillator
CPT/HCPCS: 36415; 80053; 81001; 83605; 83880; 85025

== ENCOUNTER 2024-05-16 00:39 | Inpatient (IN) | payer MEDICARE ==
[~2024-05-16] VITALS: Ht 182.9 cm; Wt 127.0 kg
[~2024-05-16 00:39] MED LIST changes: +CYCL5TAB PO; +HYDR100T15 PO; -HYDR100T27 PO
[2024-05-16] MEDS: VANCOMYCIN KIT 1 GM/250 ML IV.KIT IV ONE (01:17)
[2024-05-16 01:23] LABS: BASOPHILS # (AUTO) 0.08 K/uL (0.00-0.20); BASOPHILS % (AUTO) 0.8 % (0.0-5.0); EOSINOPHILS # (AUTO) 0.47 K/uL (0.00-0.70); EOSINOPHILS % (AUTO) 4.4 % (0.0-8.0); HEMATOCRIT 30.8 % (42-54); IMMATURE GRANULOCYTE ABSOLUTE 0.05 K/uL (0-1); LYMPHOCYTES # (AUTO) 0.7 K/uL (1.0-4.8); LYMPHOCYTES % (AUTO) 6.6 % (21.0-51.0); MEAN CORPUSCULAR HEMOGLOBIN 31.5 pg (27.0-33.0); MEAN CORPUSCULAR HGB CONC 31.5 g/dL (32.0-36.0); MONOCYTES # (AUTO) 1.2 K/uL (0.1-1.0); NEUTROPHILS # (AUTO) 8.1 K/uL (1.8-7.7); NEUTROPHILS % (AUTO) 76.7 % (40.0-77.0); PLATELET COUNT (AUTO) 336 K/uL (130-400); RED BLOOD CELL COUNT(AUTO) 3.08 MIL/uL (4.50-6.20); RED CELL DISTRIBUTION WIDTH 19.6 % (11.0-15.5); WHITE BLOOD COUNT (AUTO) 10.6 K/uL (4.8-10.8)
[2024-05-16 01:28] LABS: CREATININE 5.2 mg/dL (0.5-1.3); POTASSIUM 3.8 mmol/L (3.5-5.1)
[2024-05-16 01:32] LABS: BILIRUBIN,TOTAL 0.6 mg/dL (0.2-1.0); TOTAL PROTEIN, SERUM 7.3 g/dL (6.0-8.3)
[2024-05-16] MEDS: morPHINE 4 MG SYG IVP ONE (01:40)
[2024-05-16] MEDS: ondanSETRON 4MG INJ IVP ONE (01:40)
[2024-05-16] MEDS: hydroMORPHone 1 MG INJ IVP ONE (03:34)
[2024-05-16] MEDS ORDERED: DEXTROSE 50%-WATER 50 ML DISP.SYRIN IV PRN (05:30)
[2024-05-16] MEDS ORDERED: ondanSETRON 4MG INJ IV PRN (05:30)
[2024-05-16] MEDS ORDERED: VANCOMYCIN PROTOCOL PER PHARMACY IV PRN (05:30)
[2024-05-16] MEDS ORDERED: GLUCAGON 1MG KIT 1 MG ML IM PRN (05:30)
[2024-05-16] MEDS: INSULIN humuLIN R 100 UNIT/ML 3ML SQ SCH (07:30)
[2024-05-16] MEDS: ZOSYN 3.375GM +NS 50ML IVPB SCH (12:38)
[2024-05-16 16:30] VITALS: BP 158/43; PULSE 105; RESP 22; TEMP 98
[2024-05-16 16:56] VITALS: O2SAT 91
[2024-05-16 20:00] VITALS: O2SAT 92
[2024-05-16] MEDS: FAMOTIDINE 20MG TAB PO SCH (20:48)
[2024-05-16 21:10] VITALS: BP 133/55; PULSE 84; RESP 21; TEMP 101.2
[2024-05-16] MEDS: acetaMINOPHEN 325 MG TAB PO PRN (22:26)
[2024-05-16] MEDS: hydroMORPHone 0.5 MG SYG (0.5MG/0.5ML) IVP PRN (22:26)
[2024-05-16 23:34] VITALS: BP 105/51; PULSE 90; RESP 18; TEMP 99
[2024-05-17] VITALS (22 sets, daily range): BP systolic 90–130; BP diastolic 30–85; PULSE 92–113; RESP 16–19; TEMP 97.3–98.5; O2SAT 92–94
[2024-05-17 08:48] LABS: BASOPHILS # (AUTO) 0.09 K/uL (0.00-0.20); BASOPHILS % (AUTO) 0.6 % (0.0-5.0); EOSINOPHILS # (AUTO) 0.26 K/uL (0.00-0.70); EOSINOPHILS % (AUTO) 1.7 % (0.0-8.0); HEMATOCRIT 31.6 % (42-54); LYMPHOCYTES # (AUTO) 0.7 K/uL (1.0-4.8); LYMPHOCYTES % (AUTO) 4.2 % (21.0-51.0); MEAN CORPUSCULAR HEMOGLOBIN 31.4 pg (27.0-33.0); MEAN CORPUSCULAR HGB CONC 30.7 g/dL (32.0-36.0); MEAN CORPUSCULAR VOLUME 102.3 fL (79-99); MONOCYTES # (AUTO) 1.6 K/uL (0.1-1.0); MONOCYTES % (AUTO) 10.2 % (3.0-13.0); NEUTROPHILS % (AUTO) 82.7 % (40.0-77.0); PLATELET COUNT (AUTO) 302 K/uL (130-400); RED BLOOD CELL COUNT(AUTO) 3.09 MIL/uL (4.50-6.20); RED CELL DISTRIBUTION WIDTH 19.3 % (11.0-15.5); WHITE BLOOD COUNT (AUTO) 15.7 K/uL (4.8-10.8)
[2024-05-17 08:55] LABS: HEMOGLOBIN A1C 8.6 % (4.0-6.0)
[2024-05-17 09:00] LABS: CREATININE 6.8 mg/dL (0.5-1.3); MAGNESIUM 1.9 mg/dL (1.80-2.40); PHOSPHORUS 7.4 mg/dL (2.5-4.9); POTASSIUM 4.6 mmol/L (3.5-5.1)
[2024-05-17] MEDS ORDERED: 0.9% NACL 250ML 250 ML IV SCH (14:30)
[2024-05-17] MEDS: 0.9%NACL 1000ML 1,000 ML IV SCH (14:43)
[2024-05-17] MEDS: ALBUMIN (HUMAN) 25% 50 ML IV.SOLN. IV SCH (15:06)
[2024-05-17] MEDS: VANCOMYCIN 750MG VIAL IVPB SCH (17:06)
[2024-05-17] MEDS: EPOETIN ALFA-EPBX (NON-ESRD) 10,000 UNIT/ML VIAL SQ SCH (17:09)
[2024-05-18] VITALS (8 sets, daily range): BP systolic 107–142; BP diastolic 52–67; PULSE 91–101; RESP 18–20; TEMP 97.5–99.6; O2SAT 93–95
[2024-05-18 05:18] LABS: BASOPHILS # (AUTO) 0.07 K/uL (0.00-0.20); BASOPHILS % (AUTO) 0.5 % (0.0-5.0); EOSINOPHILS # (AUTO) 0.02 K/uL (0.00-0.70); EOSINOPHILS % (AUTO) 0.2 % (0.0-8.0); HEMATOCRIT 28.9 % (42-54); IMMATURE GRANULOCYTE ABSOLUTE 0.11 K/uL (0-1); LYMPHOCYTES # (AUTO) 0.6 K/uL (1.0-4.8); LYMPHOCYTES % (AUTO) 4.3 % (21.0-51.0); MEAN CORPUSCULAR HEMOGLOBIN 30.8 pg (27.0-33.0); MEAN CORPUSCULAR HGB CONC 31.1 g/dL (32.0-36.0); MONOCYTES # (AUTO) 1.3 K/uL (0.1-1.0); MONOCYTES % (AUTO) 9.8 % (3.0-13.0); NEUTROPHILS # (AUTO) 11.1 K/uL (1.8-7.7); NEUTROPHILS % (AUTO) 84.4 % (40.0-77.0); PLATELET COUNT (AUTO) 299 K/uL (130-400); RED BLOOD CELL COUNT(AUTO) 2.92 MIL/uL (4.50-6.20); RED CELL DISTRIBUTION WIDTH 19.2 % (11.0-15.5); WHITE BLOOD COUNT (AUTO) 13.2 K/uL (4.8-10.8)
[2024-05-18 05:46] LABS: CREATININE 6.2 mg/dL (0.5-1.3); PHOSPHORUS 6.9 mg/dL (2.5-4.9); POTASSIUM 4.3 mmol/L (3.5-5.1)
[2024-05-18 06:51] LABS: HEPATITIS B SURFACE ANTIBODY Positive (Reactive); HEPATITIS B SURFACE ANTIGEN Non-Reactive (Nonreactive); HEPATITIS C ANTIBODY Non-Reactive (Nonreactive)
[2024-05-18 06:52] LABS: HEPATITIS B CORE AB TOTAL Non-Reactive (Nonreactive)
[2024-05-18] MEDS: Vitamin B Complex/Vit C/Folic Acid PO SCH (08:30)
[2024-05-18] MEDS ORDERED: COMPOUND IV MISC 1 EACH IVSOLN MISC PRN (13:00)
[2024-05-18] MEDS: MEROPENEM 1 GM in 0.9%NACL 100ML 100 ML IVPB SCH (13:33)
[2024-05-18] MEDS ORDERED: PHARMACY COMMUNICATION MISC SCH (16:00)
[2024-05-18] MEDS: sevELAMer HCL 800 MG TABLET PO SCH (16:16)
[2024-05-18] MEDS ORDERED: sevELAMer HCL 800 MG TABLET PO SCH (17:00)
[2024-05-18] MEDS ORDERED: GABA-534 PO (21:37)
[2024-05-18] MEDS ORDERED: TORS10TA18 PO (21:37)
[2024-05-18] MEDS ORDERED: APIX5TAB PO (21:37)
[2024-05-18] MEDS: NYSTatin 30 GM CREAM TP SCH (22:48)
[2024-05-18] MEDS: GABAPENTIN 300 MG CAPSULE PO SCH (23:39)
[2024-05-19] VITALS (21 sets, daily range): BP systolic 101–153; BP diastolic 45–93; PULSE 71–102; RESP 14–20; TEMP 97.3–98.6; O2SAT 96
[2024-05-19 07:06] LABS: HEMATOCRIT 30.3 % (42-54); MEAN CORPUSCULAR HEMOGLOBIN 31.5 pg (27.0-33.0); MEAN CORPUSCULAR HGB CONC 31.7 g/dL (32.0-36.0); MEAN CORPUSCULAR VOLUME 99.3 fL (79-99); RED BLOOD CELL COUNT(AUTO) 3.05 MIL/uL (4.50-6.20); RED CELL DISTRIBUTION WIDTH 18.8 % (11.0-15.5); WHITE BLOOD COUNT (AUTO) 13.9 K/uL (4.8-10.8)
[2024-05-19 07:18] LABS: ALBUMIN 1.7 g/dL (3.5-5.0); BILIRUBIN,TOTAL 0.9 mg/dL (0.2-1.0); CREATININE 7.3 mg/dL (0.5-1.3); PHOSPHORUS 8.4 mg/dL (2.5-4.9); POTASSIUM 4.1 mmol/L (3.5-5.1); TOTAL PROTEIN, SERUM 6.8 g/dL (6.0-8.3); VANCOMYCIN LEVEL 14.4 mcg/mL (20.0-30.0)
[2024-05-19] MEDS: GABAPENTIN 300 MG CAPSULE PO SCH (08:33)
[2024-05-19] MEDS: SODIUM HYPOCHLORITE 0.25% [HALF STRENGTH] 473 ML TOPICAL SOLN TP SCH (08:35)
[2024-05-19] MEDS ORDERED: NON-FORMULARY MEDICATION 1 EACH (Gabapentin 300 MG) PO SCH (09:00)
[2024-05-19] MEDS: 0.9%NACL 1000ML 1,000 ML IV SCH (09:46)
[2024-05-19] MEDS: VANCOMYCIN 1.5 GM/250 ML BAG 250 ML IV ONE (17:09)
[2024-05-19] MEDS: INSULIN GLARgine 100 UNITS/ML 10 ML VIAL SQ SCH (22:07)
[2024-05-19] MEDS: FAMOTIDINE 20MG TAB PO SCH (22:08)
[2024-05-20] VITALS (8 sets, daily range): BP systolic 96–144; BP diastolic 53–80; PULSE 83–102; RESP 17–22; TEMP 97.7–98.6; O2SAT 94–96
[2024-05-20 09:20] LABS: BASOPHILS # (AUTO) 0.09 K/uL (0.00-0.20); BASOPHILS % (AUTO) 0.7 % (0.0-5.0); EOSINOPHILS # (AUTO) 0.36 K/uL (0.00-0.70); HEMATOCRIT 31.8 % (42-54); IMMATURE GRANULOCYTE ABSOLUTE 0.06 K/uL (0-1); LYMPHOCYTES # (AUTO) 0.6 K/uL (1.0-4.8); LYMPHOCYTES % (AUTO) 5.1 % (21.0-51.0); MEAN CORPUSCULAR HGB CONC 30.8 g/dL (32.0-36.0); MEAN CORPUSCULAR VOLUME 100.6 fL (79-99); MONOCYTES # (AUTO) 1.2 K/uL (0.1-1.0); MONOCYTES % (AUTO) 9.9 % (3.0-13.0); NEUTROPHILS # (AUTO) 9.8 K/uL (1.8-7.7); NEUTROPHILS % (AUTO) 80.8 % (40.0-77.0); PLATELET COUNT (AUTO) 258 K/uL (130-400); RED BLOOD CELL COUNT(AUTO) 3.16 MIL/uL (4.50-6.20); RED CELL DISTRIBUTION WIDTH 18.6 % (11.0-15.5); WHITE BLOOD COUNT (AUTO) 12.1 K/uL (4.8-10.8)
[2024-05-20 09:32] LABS: ALBUMIN 1.7 g/dL (3.5-5.0); BILIRUBIN,TOTAL 0.7 mg/dL (0.2-1.0); CREATININE 6.5 mg/dL (0.5-1.3); PHOSPHORUS 6.8 mg/dL (2.5-4.9); POTASSIUM 3.8 mmol/L (3.5-5.1); TOTAL PROTEIN, SERUM 6.8 g/dL (6.0-8.3)
[2024-05-21] VITALS (24 sets, daily range): BP systolic 106–152; BP diastolic 55–96; PULSE 90–105; RESP 16–22; TEMP 97.3–98.3; O2SAT 94–95
[2024-05-21 05:21] LABS: HEMATOCRIT 31.1 % (42-54); MEAN CORPUSCULAR HGB CONC 31.8 g/dL (32.0-36.0); MEAN CORPUSCULAR VOLUME 97.5 fL (79-99); NUCLEATED RED BLOOD CELLS 0.2 % (0.0-0.19); RED BLOOD CELL COUNT(AUTO) 3.19 MIL/uL (4.50-6.20); RED CELL DISTRIBUTION WIDTH 18.6 % (11.0-15.5)
[2024-05-21 05:35] LABS: CREATININE 7.1 mg/dL (0.5-1.3); PHOSPHORUS 7.7 mg/dL (2.5-4.9); POTASSIUM 3.8 mmol/L (3.5-5.1); VANCOMYCIN LEVEL 23.3 mcg/mL (20.0-30.0)
[2024-05-21] MEDS ORDERED: 0.9%NACL 1000ML 1,000 ML IV SCH (10:00)
[2024-05-21] MEDS: VANCOMYCIN KIT 1 GM/250 ML IV.KIT IV SCH (17:26)
[2024-05-21] MEDS: fluCONazole 100 MG TAB PO SCH (17:27)
[2024-05-21] MEDS: hydroMORPHone 0.5 MG SYG (0.5MG/0.5ML) IVP PRN (23:35)
[2024-05-22] VITALS (7 sets, daily range): BP systolic 99–146; BP diastolic 62–90; PULSE 63–101; RESP 16–19; TEMP 97.3–98.2; O2SAT 96–100
[2024-05-22 06:20] LABS: BASOPHILS # (AUTO) 0.08 K/uL (0.00-0.20); BASOPHILS % (AUTO) 0.5 % (0.0-5.0); EOSINOPHILS # (AUTO) 0.48 K/uL (0.00-0.70); EOSINOPHILS % (AUTO) 3.2 % (0.0-8.0); HEMATOCRIT 32.9 % (42-54); IMMATURE GRANULOCYTE ABSOLUTE 0.17 K/uL (0-1); LYMPHOCYTES # (AUTO) 0.7 K/uL (1.0-4.8); LYMPHOCYTES % (AUTO) 4.6 % (21.0-51.0); MEAN CORPUSCULAR HEMOGLOBIN 31.2 pg (27.0-33.0); MEAN CORPUSCULAR HGB CONC 31.6 g/dL (32.0-36.0); MEAN CORPUSCULAR VOLUME 98.8 fL (79-99); MONOCYTES # (AUTO) 1.4 K/uL (0.1-1.0); MONOCYTES % (AUTO) 9.1 % (3.0-13.0); NEUTROPHILS # (AUTO) 12.3 K/uL (1.8-7.7); NEUTROPHILS % (AUTO) 81.5 % (40.0-77.0); PLATELET COUNT (AUTO) 259 K/uL (130-400); RED BLOOD CELL COUNT(AUTO) 3.33 MIL/uL (4.50-6.20); RED CELL DISTRIBUTION WIDTH 18.9 % (11.0-15.5); WHITE BLOOD COUNT (AUTO) 15.2 K/uL (4.8-10.8)
[2024-05-22 06:38] LABS: ALBUMIN 1.8 g/dL (3.5-5.0); BILIRUBIN,TOTAL 0.6 mg/dL (0.2-1.0); CREATININE 6.2 mg/dL (0.5-1.3); PHOSPHORUS 6.5 mg/dL (2.5-4.9); POTASSIUM 3.8 mmol/L (3.5-5.1); TOTAL PROTEIN, SERUM 6.8 g/dL (6.0-8.3)
[2024-05-22] MEDS ORDERED: fluCONazole 100 MG TAB PO SCH (09:00)
[2024-05-23] VITALS (8 sets, daily range): BP systolic 122–143; BP diastolic 72–83; PULSE 87–99; RESP 16–18; TEMP 97.5–98.1; O2SAT 99–100
[2024-05-23 06:31] LABS: BASOPHILS # (AUTO) 0.07 K/uL (0.00-0.20); BASOPHILS % (AUTO) 0.6 % (0.0-5.0); EOSINOPHILS # (AUTO) 0.62 K/uL (0.00-0.70); EOSINOPHILS % (AUTO) 5.1 % (0.0-8.0); HEMATOCRIT 33.3 % (42-54); IMMATURE GRANULOCYTE ABSOLUTE 0.09 K/uL (0-1); LYMPHOCYTES # (AUTO) 0.9 K/uL (1.0-4.8); LYMPHOCYTES % (AUTO) 7.5 % (21.0-51.0); MEAN CORPUSCULAR HEMOGLOBIN 30.9 pg (27.0-33.0); MEAN CORPUSCULAR HGB CONC 31.8 g/dL (32.0-36.0); MEAN CORPUSCULAR VOLUME 97.1 fL (79-99); MONOCYTES # (AUTO) 1.4 K/uL (0.1-1.0); MONOCYTES % (AUTO) 11.9 % (3.0-13.0); NEUTROPHILS % (AUTO) 74.2 % (40.0-77.0); PLATELET COUNT (AUTO) 281 K/uL (130-400); RED BLOOD CELL COUNT(AUTO) 3.43 MIL/uL (4.50-6.20); RED CELL DISTRIBUTION WIDTH 18.9 % (11.0-15.5); WHITE BLOOD COUNT (AUTO) 12.1 K/uL (4.8-10.8)
[2024-05-23 06:46] LABS: ALBUMIN 1.8 g/dL (3.5-5.0); BILIRUBIN,TOTAL 0.6 mg/dL (0.2-1.0); CREATININE 6.9 mg/dL (0.5-1.3); MAGNESIUM 2.3 mg/dL (1.80-2.40); PHOSPHORUS 7.6 mg/dL (2.5-4.9); POTASSIUM 4.1 mmol/L (3.5-5.1); TOTAL PROTEIN, SERUM 6.9 g/dL (6.0-8.3)
[2024-05-24] VITALS (21 sets, daily range): BP systolic 88–133; BP diastolic 37–82; PULSE 85–102; RESP 16–19; TEMP 97.5–98.6; O2SAT 95–98
[2024-05-24 05:28] LABS: BASOPHILS # (AUTO) 0.07 K/uL (0.00-0.20); BASOPHILS % (AUTO) 0.7 % (0.0-5.0); EOSINOPHILS # (AUTO) 0.64 K/uL (0.00-0.70); EOSINOPHILS % (AUTO) 6.6 % (0.0-8.0); HEMATOCRIT 30.4 % (42-54); IMMATURE GRANULOCYTE ABSOLUTE 0.08 K/uL (0-1); LYMPHOCYTES # (AUTO) 0.6 K/uL (1.0-4.8); LYMPHOCYTES % (AUTO) 5.8 % (21.0-51.0); MEAN CORPUSCULAR HEMOGLOBIN 30.7 pg (27.0-33.0); MEAN CORPUSCULAR HGB CONC 31.6 g/dL (32.0-36.0); MEAN CORPUSCULAR VOLUME 97.1 fL (79-99); MONOCYTES # (AUTO) 1.1 K/uL (0.1-1.0); MONOCYTES % (AUTO) 11.3 % (3.0-13.0); NEUTROPHILS # (AUTO) 7.3 K/uL (1.8-7.7); NEUTROPHILS % (AUTO) 74.8 % (40.0-77.0); PLATELET COUNT (AUTO) 285 K/uL (130-400); RED BLOOD CELL COUNT(AUTO) 3.13 MIL/uL (4.50-6.20); RED CELL DISTRIBUTION WIDTH 18.6 % (11.0-15.5); WHITE BLOOD COUNT (AUTO) 9.7 K/uL (4.8-10.8)
[2024-05-24 05:58] LABS: ALBUMIN 1.6 g/dL (3.5-5.0); BILIRUBIN,TOTAL 0.6 mg/dL (0.2-1.0); POTASSIUM 3.9 mmol/L (3.5-5.1); THYROID STIMULATING HORMONE 2.26 uIU/mL (0.36-3.74); TOTAL PROTEIN, SERUM 6.4 g/dL (6.0-8.3); VANCOMYCIN TROUGH 16.1 UG/ML (10.0-20.0)
[2024-05-24] MEDS ORDERED: IOHEXOL-350 75 ML VIAL IV ONE (12:21)
[2024-05-24] MEDS ORDERED: IOHEXOL 350 MG/ML 100ML INFUS..BTL IV ONE (12:30)
[2024-05-24] MEDS ORDERED: acetaMINOPHEN 325 MG TAB PO PRN (17:30)
[2024-05-24] MEDS ORDERED: hydrALAZine 20MG/ML VIAL IV PRN (17:30)
[2024-05-24] MEDS ORDERED: ondanSETRON 4MG INJ IVP PRN (17:30)
[2024-05-24] MEDS ORDERED: 0.9% NACL 500ML IV.SOLN 500 ML IV SCH (17:30)
[2024-05-24] MEDS: ALBUMIN (HUMAN) 25% 50 ML IV.SOLN. IV ONE (19:00)
[2024-05-24] MEDS ORDERED: 0.9% NACL 250ML 250 ML IV SCH (19:00)
[2024-05-24] MEDS: VANCOMYCIN 1.25 GM/250 ML BAG 250 ML IV SCH (21:18)
[2024-05-24] MEDS: MEROPENEM 500 MG in 0.9%NACL 100ML 100 ML IV SCH (23:29)
[2024-05-25] VITALS (8 sets, daily range): BP systolic 93–165; BP diastolic 52–86; PULSE 91–107; RESP 17–20; TEMP 97.6–99.1; O2SAT 93–96
[2024-05-25] MEDS: LIDOCAINE HCL 5% OINT 50GM 1 APPL/GM TUBE TP PRN (03:21)
[2024-05-25 05:22] LABS: HEMATOCRIT 32.6 % (42-54); MEAN CORPUSCULAR HEMOGLOBIN 31.2 pg (27.0-33.0); MEAN CORPUSCULAR HGB CONC 31.6 g/dL (32.0-36.0); MEAN CORPUSCULAR VOLUME 98.8 fL (79-99); RED BLOOD CELL COUNT(AUTO) 3.3 MIL/uL (4.50-6.20); RED CELL DISTRIBUTION WIDTH 18.6 % (11.0-15.5); WHITE BLOOD COUNT (AUTO) 11.3 K/uL (4.8-10.8)
[2024-05-25 05:42] LABS: ALBUMIN 1.8 g/dL (3.5-5.0); BILIRUBIN,TOTAL 0.6 mg/dL (0.2-1.0); CREATININE 7.1 mg/dL (0.5-1.3); POTASSIUM 3.9 mmol/L (3.5-5.1); TOTAL PROTEIN, SERUM 6.9 g/dL (6.0-8.3)
[2024-05-25] MEDS: BALSAM PERU/CASTOR OIL 60 GM TUBE TP SCH (21:09)
[2024-05-26] VITALS (28 sets, daily range): BP systolic 91–160; BP diastolic 31–93; PULSE 68–110; RESP 16–20; TEMP 98–99.4; O2SAT 93–100
[2024-05-26 05:30] LABS: BASOPHILS # (AUTO) 0.08 K/uL (0.00-0.20); BASOPHILS % (AUTO) 0.7 % (0.0-5.0); EOSINOPHILS # (AUTO) 0.43 K/uL (0.00-0.70); EOSINOPHILS % (AUTO) 3.8 % (0.0-8.0); HEMATOCRIT 30.2 % (42-54); IMMATURE GRANULOCYTE ABSOLUTE 0.07 K/uL (0-1); LYMPHOCYTES # (AUTO) 0.8 K/uL (1.0-4.8); LYMPHOCYTES % (AUTO) 7.3 % (21.0-51.0); MEAN CORPUSCULAR HEMOGLOBIN 31.4 pg (27.0-33.0); MEAN CORPUSCULAR HGB CONC 32.1 g/dL (32.0-36.0); MEAN CORPUSCULAR VOLUME 97.7 fL (79-99); MONOCYTES # (AUTO) 1.3 K/uL (0.1-1.0); MONOCYTES % (AUTO) 10.9 % (3.0-13.0); NEUTROPHILS # (AUTO) 8.8 K/uL (1.8-7.7); NEUTROPHILS % (AUTO) 76.7 % (40.0-77.0); PLATELET COUNT (AUTO) 310 K/uL (130-400); RED BLOOD CELL COUNT(AUTO) 3.09 MIL/uL (4.50-6.20); RED CELL DISTRIBUTION WIDTH 18.3 % (11.0-15.5); WHITE BLOOD COUNT (AUTO) 11.4 K/uL (4.8-10.8)
[2024-05-26 05:52] LABS: ALBUMIN 1.8 g/dL (3.5-5.0); BILIRUBIN,TOTAL 0.5 mg/dL (0.2-1.0); POTASSIUM 4.5 mmol/L (3.5-5.1); THYROID STIMULATING HORMONE 3.37 uIU/mL (0.36-3.74); TOTAL PROTEIN, SERUM 6.8 g/dL (6.0-8.3); VANCOMYCIN TROUGH 23.5 UG/ML (10.0-20.0)
[2024-05-26] MEDS: hydroMORPHone 0.5 MG SYG (0.5MG/0.5ML) IVP PRN (15:17)
[2024-05-27] VITALS (8 sets, daily range): BP systolic 114–159; BP diastolic 55–91; PULSE 95–104; RESP 16–20; TEMP 97.7–98.1; O2SAT 95
[2024-05-27 05:19] LABS: BASOPHILS # (AUTO) 0.08 K/uL (0.00-0.20); BASOPHILS % (AUTO) 0.7 % (0.0-5.0); EOSINOPHILS # (AUTO) 0.41 K/uL (0.00-0.70); EOSINOPHILS % (AUTO) 3.7 % (0.0-8.0); HEMATOCRIT 31.6 % (42-54); IMMATURE GRANULOCYTE ABSOLUTE 0.08 K/uL (0-1); LYMPHOCYTES # (AUTO) 0.8 K/uL (1.0-4.8); MEAN CORPUSCULAR HEMOGLOBIN 31.4 pg (27.0-33.0); MEAN CORPUSCULAR VOLUME 98.1 fL (79-99); MONOCYTES # (AUTO) 1.4 K/uL (0.1-1.0); MONOCYTES % (AUTO) 12.8 % (3.0-13.0); NEUTROPHILS # (AUTO) 8.3 K/uL (1.8-7.7); NEUTROPHILS % (AUTO) 75.1 % (40.0-77.0); PLATELET COUNT (AUTO) 275 K/uL (130-400); RED BLOOD CELL COUNT(AUTO) 3.22 MIL/uL (4.50-6.20); RED CELL DISTRIBUTION WIDTH 17.8 % (11.0-15.5); WHITE BLOOD COUNT (AUTO) 11.1 K/uL (4.8-10.8)
[2024-05-27 05:51] LABS: ALBUMIN 1.8 g/dL (3.5-5.0); BILIRUBIN,TOTAL 0.6 mg/dL (0.2-1.0); CREATININE 6.8 mg/dL (0.5-1.3); TOTAL PROTEIN, SERUM 6.9 g/dL (6.0-8.3)
[2024-05-28] VITALS (23 sets, daily range): BP systolic 93–162; BP diastolic 42–103; PULSE 72–99; RESP 12–20; TEMP 97.4–98.1; O2SAT 98–99
[2024-05-28 05:28] LABS: BASOPHILS # (AUTO) 0.08 K/uL (0.00-0.20); BASOPHILS % (AUTO) 0.7 % (0.0-5.0); EOSINOPHILS # (AUTO) 0.67 K/uL (0.00-0.70); EOSINOPHILS % (AUTO) 5.9 % (0.0-8.0); HEMATOCRIT 30.7 % (42-54); IMMATURE GRANULOCYTE ABSOLUTE 0.08 K/uL (0-1); LYMPHOCYTES # (AUTO) 0.8 K/uL (1.0-4.8); LYMPHOCYTES % (AUTO) 6.8 % (21.0-51.0); MEAN CORPUSCULAR HEMOGLOBIN 30.1 pg (27.0-33.0); MEAN CORPUSCULAR HGB CONC 30.6 g/dL (32.0-36.0); MEAN CORPUSCULAR VOLUME 98.4 fL (79-99); MONOCYTES # (AUTO) 1.4 K/uL (0.1-1.0); MONOCYTES % (AUTO) 12.7 % (3.0-13.0); NEUTROPHILS # (AUTO) 8.2 K/uL (1.8-7.7); NEUTROPHILS % (AUTO) 73.2 % (40.0-77.0); PLATELET COUNT (AUTO) 277 K/uL (130-400); RED BLOOD CELL COUNT(AUTO) 3.12 MIL/uL (4.50-6.20); RED CELL DISTRIBUTION WIDTH 17.4 % (11.0-15.5); WHITE BLOOD COUNT (AUTO) 11.3 K/uL (4.8-10.8)
[2024-05-28 05:50] LABS: CREATININE 7.6 mg/dL (0.5-1.3); MAGNESIUM 2.2 mg/dL (1.80-2.40); PHOSPHORUS 7.9 mg/dL (2.5-4.9); POTASSIUM 4.2 mmol/L (3.5-5.1); VANCOMYCIN LEVEL 24.3 mcg/mL (20.0-30.0)
[2024-05-28 16:17] LABS: INR 1.12 (0.85-1.15)
[2024-05-29] VITALS: BP 102/72; PULSE 94; RESP 20; TEMP 97.8
[2024-05-29 04:00] VITALS: BP 138/60; PULSE 100; RESP 20; TEMP 98.7
[2024-05-29 08:00] VITALS: BP 131/71; PULSE 93; RESP 18; TEMP 98.6
[2024-05-29] MEDS: 0.9%NACL 10ML VIAL IV SCH (09:55)
[2024-05-29 12:30] VITALS: BP 146/83; PULSE 83; RESP 17
[2024-05-29 14:15] VITALS: O2SAT 96
[2024-05-29 14:18] VITALS: O2SAT 96
== END 2024-05-29 15:00 | DRG 871 ==
LOC: EDH 00:39 → EDHIP 05:26 → OBSVTOIN 05:26 → 3DH 16:02
PROVIDERS: ADMIT Hospitalist; ATTEND Hospitalist
PROC: 5A1D70Z Performance of Urinary Filtration, Intermittent, Less than 6 Hours Per Day (ICD-10-PCS; principal; 2024-05-17)
PROC: 5A1D70Z Performance of Urinary Filtration, Intermittent, Less than 6 Hours Per Day (ICD-10-PCS; 2024-05-19)
PROC: 5A1D70Z Performance of Urinary Filtration, Intermittent, Less than 6 Hours Per Day (ICD-10-PCS; 2024-05-21)
PROC: 5A1D70Z Performance of Urinary Filtration, Intermittent, Less than 6 Hours Per Day (ICD-10-PCS; 2024-05-24)
PROC: 5A1D70Z Performance of Urinary Filtration, Intermittent, Less than 6 Hours Per Day (ICD-10-PCS; 2024-05-26)
PROC: 5A1D70Z Performance of Urinary Filtration, Intermittent, Less than 6 Hours Per Day (ICD-10-PCS; 2024-05-28)
DX: A41.9 Sepsis, unspecified organism (principal); E43 Unspecified severe protein-calorie malnutrition; N18.6 End stage renal disease; L03.115 Cellulitis of right lower limb; I13.2 Hypertensive heart and chronic kidney disease with heart failure and with stage 5 chronic kidney disease, or end stage renal disease; I50.32 Chronic diastolic (congestive) heart failure; I87.1 Compression of vein; L03.116 Cellulitis of left lower limb; I48.20 Chronic atrial fibrillation, unspecified; E11.52 Type 2 diabetes mellitus with diabetic peripheral angiopathy with gangrene; I44.2 Atrioventricular block, complete; L97.918 Non-pressure chronic ulcer of unspecified part of right lower leg with other specified severity; L97.928 Non-pressure chronic ulcer of unspecified part of left lower leg with other specified severity; R65.20 Severe sepsis without septic shock; E11.65 Type 2 diabetes mellitus with hyperglycemia; D63.1 Anemia in chronic kidney disease; Z95.0 Presence of cardiac pacemaker; H54.61 Unqualified visual loss, right eye, normal vision left eye; E11.69 Type 2 diabetes mellitus with other specified complication; I25.10 Atherosclerotic heart disease of native coronary artery without angina pectoris; E11.319 Type 2 diabetes mellitus with unspecified diabetic retinopathy without macular edema; E78.00 Pure hypercholesterolemia, unspecified; Z91.199 Patient's noncompliance with other medical treatment and regimen due to unspecified reason; G47.33 Obstructive sleep apnea (adult) (pediatric); E83.39 Other disorders of phosphorus metabolism; E66.01 Morbid (severe) obesity due to excess calories; B96.89 Other specified bacterial agents as the cause of diseases classified elsewhere; I87.309 Chronic venous hypertension (idiopathic) without complications of unspecified lower extremity; Z99.2 Dependence on renal dialysis; I89.0 Lymphedema, not elsewhere classified; I34.81 Nonrheumatic mitral (valve) annulus calcification; E11.621 Type 2 diabetes mellitus with foot ulcer; E11.40 Type 2 diabetes mellitus with diabetic neuropathy, unspecified; E11.22 Type 2 diabetes mellitus with diabetic chronic kidney disease; R09.89 Other specified symptoms and signs involving the circulatory and respiratory systems; B95.61 Methicillin susceptible Staphylococcus aureus infection as the cause of diseases classified elsewhere; Z68.38 Body mass index [BMI] 38.0-38.9, adult; Z87.891 Personal history of nicotine dependence; Z86.73 Personal history of transient ischemic attack (TIA), and cerebral infarction without residual deficits; Z86.718 Personal history of other venous thrombosis and embolism; Z86.19 Personal history of other infectious and parasitic diseases; Z79.899 Other long term (current) drug therapy; Z79.82 Long term (current) use of aspirin; Z79.02 Long term (current) use of antithrombotics/antiplatelets; Z79.01 Long term (current) use of anticoagulants; Z90.49 Acquired absence of other specified parts of digestive tract
CPT/HCPCS: 36415; 71045; 71275; 73630; 75635; 78315; 80048; 80053; 80202; 82306; 82607; 82948; 83036; 83605; 83735; 84100; 84443; 85025; 85027; 85610; 85651; 85730; 86140; 86704; 86706; 86803; 87040; 87070; 87076; 87086; 87186; 87340; 90935; 93306; 96365; 96375; A9503; C1894; G0378; J1170; J1815; J2185; J2270; J2405; J2543; J3370; P9047; Q9967; 3370; A6260; C1750; Q5106